=== PATIENT | female | born 1990 | race Caucasian/White ===

== ENCOUNTER 2018-09-06 16:46 | Emergency (ER) | payer SELFPAY ==
[2018-09-06 16:47] VITALS: BP 123/81; PULSE 74; RESP 16; TEMP 36.1; O2SAT 100; BMI 24.3
--- NOTE | 2018-09-06 17:19 | CT_ITS ---
STUDY: CT BRAIN WITH AND WITHOUT CONTRAST REASON FOR EXAM: Female, 28 years old. Venous headache RADIATION DOSAGE (If Supplied By Facility): CTDIvol = ( 44.99 ) mGy, DLP = ( 1502.23 ) mGycm TECHNIQUE: Transaxial CT imaging of the brain was performed pre and post contrast administration. The examination was performed with intravenous administration of 50ML ml of Isovue 370 contrast material. Individualized dose optimization techniques were used for this CT. COMPARISON: None. FINDINGS: Normal soft tissue structures. Normal calvarium. Normal size ventricles and extra-axial spaces for the patient's age. Normal white matter tracts of the cerebral hemispheres. Normal basal ganglia and thalami. Normal brainstem. Normal cerebellum. There is no intracranial hemorrhage. There are no findings of an acute ischemic infarction. Normal visualized paranasal sinuses. CT/Brain/Head W/WO Contrast IMPRESSION: Normal unenhanced and enhanced CT scan of the brain. Electronically Signed: Tresa Lawson MD at 19:27 EST Tel , Service support ,
--- NOTE | 2018-09-06 17:20 | ED.VISSUMM ---
- ER Visit Summary Date of Service: 09/06/18 Chief Complaint: Vertigo History of Present Illness: The patient is a 28 F who presents with worsening vertigo, now with a severe headache. Patient has been having episodes of banding without any one provocation. Sometimes it happens when she is still, if she goes from sitting to standing, if she is standing still,. There is not one particular movement or activity that provokes it. She now is having a severe headache diffusely since yesterday. She has had any ringing in her right ear. She had vertigo 2 years ago that was not this intense that resolved on its own. Patient is currently taking meclizine without any relief other than it making her very sleepy. She is having double vision and blurry vision intermittently. Patient denies chest pain, URI symptoms, shortness of breath, cough, neck or back pain, weakness or numbness in the arms or legs. She has no other medical history. No alcohol or drug use. Physical Examination: Vital signs: afebrile, hemodynamically stable, no hypoxia on room air General: well nourished, well developed, in no distress Skin: warm, dry, no rash, no pallor HEENT: normocephalic and atraumatic; PERRL, EOMI, no nystagmus noted, moist mucous membranes, neck is supple, nontender, no meningismus Cardiovascular: regular rate and rhythm without murmurs, no peripheral edema, 2+ pulses all distal extremities Respiratory: No increased work of breathing, lungs are clear to auscultation bilaterally, no rales, rhonchi or wheezing Abdominal: Abdomen is soft, nontender with normoactive bowel sounds, no guarding or rebound, no masses MSK: Moves all extremities, no deformities, normal strength Neuro: Awake and alert, oriented ?4. No facial droop, sensation and motor function intact and symmetric, negative provocation with the [place]-Hallpike maneuver Test Results: Abnormal Lab Results 09/06/18 09/06/18 09/06/18 17:30 17:30 17:30 WBC 7.0 RBC 4.72 Hgb 14.5 Hct 44.5 MCV 94.3 MCH 30.7 MCHC 32.6 RDW 13.6 RDW Differential 45.5 H Plt Count 211 MPV 11.1 Immature Gran % (Auto) 0.100 Neut % (Auto) 65.0 Lymph % (Auto) 26.5 [place] % (Auto) 6.4 Eos % (Auto) 1.4 Baso % (Auto) 0.6 Absolute Neuts (auto) 4.6 Absolute Lymphs (auto) 1.86 Total Counted Not Reportable Sodium 142 Potassium 3.9 Chloride 107 Carbon Dioxide 26.0 Anion Gap 9 BUN 14 Creatinine 0.99 Estim Creat Clear Calc 69.36 Est GFR (MDRD) Af Amer 85 Est GFR (MDRD) Non-Af 70 BUN/Creatinine Ratio 14.1 Glucose 91 Calcium 9.1 Serum , Qual NEGATIVE Clinical Impression(s) from Imaging Studies Brain CT 09/06/18 17:19 IMPRESSION: Normal unenhanced and enhanced CT scan of the brain. Electronically Signed: Tresa Lawson MD at 19:27 EST Tel , Service support , Medications Given Discontinued Medications Diphenhydramine HCl (Benadryl) 25 mg IV X1 ONE Stop: 09/06/18 17:20 Last Admin: 09/06/18 17:52 Dose: 25 mg Sodium Chloride () 1,000 mls @ 999 mls/hr IV .Q1H1M ONE Stop: 09/06/18 18:19 Last Admin: 09/06/18 17:53 Dose: 999 mls/hr Ketorolac Tromethamine (Toradol) 15 mg IV X1 ONE Stop: 09/06/18 17:20 Last Admin: 09/06/18 17:52 Dose: 15 mg Promethazine HCl (Phenergan) 12.5 mg IV X1 ONE Stop: 09/06/18 17:20 Last Admin: 09/06/18 17:52 Dose: 12.5 mg Emergency Department Course and Treatment: Patient presents with 2 weeks of vertigo, now with a severe headache and intermittent vision changes. Her symptoms do seem more consistent with peripheral vertigo, as there is some provocation with positional changes, however it is not consistent, and patient has episodes even if she is not moving at all. He does have the right tinnitus, and the prior episode 2 years ago, which makes M?ni?re's disease on the differential. She has never had head imaging for her vertigo, and now with vision changes, the severe headache, and family concern for a brain tumor, CT head with contrast performed to evaluate for any mass lesions. Patient was given IV fluids, Phenergan, Benadryl and Toradol for headache treatment and vertigo symptoms. Labs were unremarkable. CT head with contrast showed no signs of any tumors, lesions or abscesses. Patient was reevaluated and had resolution of her headache with the medications. Her vertigo had improved. She was given a prescription for Phenergan for home to try instead of meclizine and also a prescription for Valium for any episodes of severe vertigo. Patient was discharged home and is to follow-up with her doctor for reevaluation if symptoms do not improve. Patient is concerned about the costs of the medications, and if the generics are prohibitively expensive, I advised her to call me back for a similar alternative prescription that would be more affordable if her prescriptions are prohibitively expensive. Treatment Plan: [] Disposition: [] Impression: peripheral vertigo, suspect Meniere's This note was generated with [employer] dictation software. It may contain incorrect words, spelling, and punctuation that were not noted in review of the chart prior to signing ED Disposition - Plan for ED Patient: Disposition: Home or Assisted Living Chief Complaint: Dizziness Instructions: ED Vertigo Unspecified Prescriptions: RX: proMETHazine tablet [Phenergan tablet] 25 mg PO Q6H PRN PRN #20 tab PRN Reason: Nausea and vertigo Diazepam [Valium] 2 mg PO TID PRN PRN #20 tab PRN Reason: Vertigo Referrals: NOT,DEFINED [NON-STAFF] - Doctor,Your [STAFF PHYSICIAN] - 3-5 Days if not improving Additional Instructions: Please follow-up with your doctor if you are not having improvement in your vertigo within 3-5 days. You may need referral to an ear nose throat doctor or an time study statistician for further evaluation of your inner ears if your symptoms continue. May try the promethazine in place of the meclizine for your symptoms. You may use the Valium for severe symptoms or at nighttime. Do not drink, drive, do any dangerous activities, or mix the Valium with any other sedating medications, as it could interact with other medicines and cause your breathing to slow down. If you have any worsening of your condition or any new concerning symptoms, please return immediately to the emergency department for another evaluation.
--- NOTE | 2018-09-06 17:23 | ED.DCSUM_ITS ---
- ER Visit Summary Date of Service: 09/06/18 Chief Complaint: Vertigo History of Present Illness: The patient is a 28 F who presents with worsening vertigo, now with a severe headache. Patient has been having episodes of banding without any one provocation. Sometimes it happens when she is still, if she goes from sitting to standing, if she is standing still,. There is not one particular movement or activity that provokes it. She now is having a severe headache diffusely since yesterday. She has had any ringing in her right ear. She had vertigo 2 years ago that was not this intense that resolved on its own. Patient is currently taking meclizine without any relief other than it making her very sleepy. She is having double vision and blurry vision intermittently. Patient denies chest pain, URI symptoms, shortness of breath, cough, neck or back pain, weakness or numbness in the arms or legs. She has no other medical history. No alcohol or drug use. Physical Examination: Vital signs: afebrile, hemodynamically stable, no hypoxia on room air General: well nourished, well developed, in no distress Skin: warm, dry, no rash, no pallor HEENT: normocephalic and atraumatic; PERRL, EOMI, no nystagmus noted, moist mucous membranes, neck is supple, nontender, no meningismus Cardiovascular: regular rate and rhythm without murmurs, no peripheral edema, 2+ pulses all distal extremities Respiratory: No increased work of breathing, lungs are clear to auscultation bilaterally, no rales, rhonchi or wheezing Abdominal: Abdomen is soft, nontender with normoactive bowel sounds, no guarding or rebound, no masses MSK: Moves all extremities, no deformities, normal strength Neuro: Awake and alert, oriented ?4. No facial droop, sensation and motor function intact and symmetric, negative provocation with the [place]-Hallpike maneuver Test Results: Abnormal Lab Results 09/06/18 09/06/18 09/06/18 17:30 17:30 17:30 WBC 7.0 RBC 4.72 Hgb 14.5 Hct 44.5 MCV 94.3 MCH 30.7 MCHC 32.6 RDW 13.6 RDW Differential 45.5 H Plt Count 211 MPV 11.1 Immature Gran % (Auto) 0.100 Neut % (Auto) 65.0 Lymph % (Auto) 26.5 [place] % (Auto) 6.4 Eos % (Auto) 1.4 Baso % (Auto) 0.6 Absolute Neuts (auto) 4.6 Absolute Lymphs (auto) 1.86 Total Counted Not Reportable Sodium 142 Potassium 3.9 Chloride 107 Carbon Dioxide 26.0 Anion Gap 9 BUN 14 Creatinine 0.99 Estim Creat Clear Calc 69.36 Est GFR (MDRD) Af Amer 85 Est GFR (MDRD) Non-Af 70 BUN/Creatinine Ratio 14.1 Glucose 91 Calcium 9.1 Serum , Qual NEGATIVE Clinical Impression(s) from Imaging Studies Brain CT 09/06/18 17:19 IMPRESSION: Normal unenhanced and enhanced CT scan of the brain. Electronically Signed: Tresa Lawson MD at 19:27 EST Tel , Service support , Medications Given Discontinued Medications Diphenhydramine HCl (Benadryl) 25 mg IV X1 ONE Stop: 09/06/18 17:20 Last Admin: 09/06/18 17:52 Dose: 25 mg Sodium Chloride () 1,000 mls @ 999 mls/hr IV .Q1H1M ONE Stop: 09/06/18 18:19 Last Admin: 09/06/18 17:53 Dose: 999 mls/hr Ketorolac Tromethamine (Toradol) 15 mg IV X1 ONE Stop: 09/06/18 17:20 Last Admin: 09/06/18 17:52 Dose: 15 mg Promethazine HCl (Phenergan) 12.5 mg IV X1 ONE Stop: 09/06/18 17:20 Last Admin: 09/06/18 17:52 Dose: 12.5 mg Emergency Department Course and Treatment: Patient presents with 2 weeks of vertigo, now with a severe headache and intermittent vision changes. Her symptoms do seem more consistent with peripheral vertigo, as there is some provocation with positional changes, however it is not consistent, and patient has episodes even if she is not moving at all. He does have the right tinnitus, and the prior episode 2 years ago, which makes M?ni?re's disease on the differential. She has never had head imaging for her vertigo, and now with vision changes, the severe headache, and family concern for a brain tumor, CT head with contrast performed to evaluate for any mass lesions. Patient was given IV fluids, Phenergan, Benadryl and Toradol for headache treatment and vertigo symptoms. Labs were unremarkable. CT head with contrast showed no signs of any tumors, lesions or abscesses. Patient was reevaluated and had resolution of her headache with the medications. Her vertigo had improved. She was given a prescription for Phenergan for home to try instead of meclizine and also a prescription for Valium for any episodes of severe vertigo. Patient was discharged home and is to follow-up with her doctor for reevaluation if symptoms do not improve. Patient is concerned about the costs of the medications, and if the generics are prohibitively expensive, I advised her to call me back for a similar alternative prescription that would be more affordable if her prescriptions are prohibitively expensive. Treatment Plan: [] Disposition: [] Impression: peripheral vertigo, suspect Meniere's This note was generated with [employer] dictation software. It may contain incorrect words, spelling, and punctuation that were not noted in review of the chart prior to signing ED Disposition - Plan for ED Patient: Disposition: Home or Assisted Living Chief Complaint: Dizziness Instructions: ED Vertigo Unspecified Prescriptions: RX: proMETHazine tablet [Phenergan tablet] 25 mg PO Q6H PRN PRN #20 tab PRN Reason: Nausea and vertigo Diazepam [Valium] 2 mg PO TID PRN PRN #20 tab PRN Reason: Vertigo Referrals: NOT,DEFINED [NON-STAFF] - Doctor,Your [STAFF PHYSICIAN] - 3-5 Days if not improving Additional Instructions: Please follow-up with your doctor if you are not having improvement in your vertigo within 3-5 days. You may need referral to an ear nose throat doctor or an hydroelectric powerplant supervisor for further evaluation of your inner ears if your symptoms continue. May try the promethazine in place of the meclizine for your symptoms. You may use the Valium for severe symptoms or at nighttime. Do not drink, drive, do any dangerous activities, or mix the Valium with any other sedating medications, as it could interact with other medicines and cause your breathing to slow down. If you have any worsening of your condition or any new concerning symptoms, please return immediately to the emergency department for another evaluation.
[2018-09-06 17:50] LABS: Hematocrit 44.5 % (37-47); Hemoglobin 14.5 g/dl (12.0-15.0); Mean Corp Hgb Conc 32.6 g/gl (32-36); Mean Corpuscular Hgb 30.7 pg (27.0-32.0); Mean Corpuscular Volume 94.3 fL (81-99); RBC Distribution Width CV 13.6 % (11.6-14.6); Red Blood Count 4.72 M/mm3 (4.2-5.4)
[2018-09-06 17:51] LABS: Absolute Lymphocyte Count 1.86 X10^3/ul (0.83-4.51); Absolute Neutrophil Count 4.6 X10^3/uL (2.0-7.7); Basophil# 0.04 X10^3/uL; Basophil% 0.6 % (0-1); Eosinophils% 1.4 % (0-5); Lymphocyte # 1.86 X10^3/ul (4.0); Lymphocyte % 26.5 % (19-41); Mean Platelet Vol. 11.1 fl (6.2-12.0); Monocyte# 0.45 X10^3/uL; Monocyte% 6.4 % (0-10); POSITIVE COUNT NO; POSITIVE DIFFERENTIAL NO; POSITIVE MORPHOLOGY NO; Platelet Count 211 K/mm3 (150-450); RBC Distribution Width SD 45.5 fl (35.1-43.9)
[2018-09-06] MEDS: proMETHazine 25 MG/ML Syringe 12.5 MG IV (17:52)
[2018-09-06] MEDS: Ketorolac 30 MG/ML Syringe 15 MG IV (17:52)
[2018-09-06] MEDS: DiphenhydrAMINE 50 MG/ML Syringe 25 MG IV (17:52)
[2018-09-06] MEDS: 0.9% Normal Saline 1,000 ML 999 ML IV (17:53)
[2018-09-06 18:04] LABS: Anion Gap 9 (5-15); BUN 14 mg/dL (7-18); BUN/Creat Ratio 14.1 RATIO (10-20); Calcium,Total 9.1 mg/dL (8.5-10.1); Chloride 107 mmol/L (98-107); Creatinine, Serum 0.99 mg/dL (0.55-1.02); EST Glomerular Filtration Rate 70 mL/min (>60); Est Glom Filt Rate - Afr Amer 85 mL/min (>60); Estimated Creatinine Clearance 69.36 ml/min; Glucose 91 mg/dL (74-106); Potassium 3.9 mmol/L (3.5-5.1); Sodium Level 142 mmol/L (136-145)
[2018-09-06 18:38] LABS: Pregnancy, Serum, hCG Quali. NEGATIVE Negative (0-9 Nonpreg)
--- NOTE | 2018-09-06 20:39 | ED.DEP ---
ED Disposition - Plan for ED Patient: Disposition: Home or Assisted Living Chief Complaint: Dizziness Instructions: ED Vertigo Unspecified Prescriptions: proMETHazine tablet [Phenergan tablet] 25 mg PO Q6H PRN PRN #20 tab PRN Reason: Nausea and vertigo Diazepam [Valium] 2 mg PO TID PRN PRN #20 tab PRN Reason: Vertigo Referrals: NOT,DEFINED [NON-STAFF] - Doctor,Your [STAFF PHYSICIAN] - 3-5 Days if not improving Additional Instructions: Please follow-up with your doctor if you are not having improvement in your vertigo within 3-5 days. You may need referral to an ear nose throat doctor or an farm supervisor for further evaluation of your inner ears if your symptoms continue. May try the promethazine in place of the meclizine for your symptoms. You may use the Valium for severe symptoms or at nighttime. Do not drink, drive, do any dangerous activities, or mix the Valium with any other sedating medications, as it could interact with other medicines and cause your breathing to slow down. If you have any worsening of your condition or any new concerning symptoms, please return immediately to the emergency department for another evaluation.
[2018-09-06 20:56] VITALS: RESP 16
--- OUTSIDE RECORDS SUMMARY | 2018-10-24 00:03 | XMS RPT_ITS ---
:1990 Author Organization [facility] Care Team Providers Name Role Phone Jose Wahl Admitting Unavailable Newbill, Jose Bernal Attending Unavailable No Doctor Assigned, Nodr Primary Care Unavailable NewbillJose Admitting Unavailable Newbill, Jose Bernal Attending Unavailable No Doctor Assigned, Nodr Primary Care Unavailable Isaura Shay Attending Unavailable Primay Care Physicia, No Primary Care Unavailable PROBLEMS PROBLEMS DATE TYPE CONDITION / CODE ATTENDING STATUS SOURCE 09/06/2018 Unknown R42 - Dizziness Isaura Shay Active Kayla and giddiness / Community R42(ICD-10) Hospital Repository PROCEDURES PROCEDURES No Procedure Records FoundRESULTS RESULTS EMERGENCY DEPARTMENT Observed: 09/07/2018 Status: F Source: MALAKOFF SUMMARY 12:29 AM [facility] REPOSITORY [facility] Medical Records Department [address] [place] [address] Emergency Department Summary 09/06/18 1720 MR#: [id number] Acct: [id number] Name: YANELIS JANSEN Rep #: [id number] : 1990 28 From: Isaura Shay MD PCP: Care Physician, No Primary Status: DEP ER - ER Visit Summary Date of Service: 09/06/18 Chief Complaint: Vertigo History of Present Illness: The patient is a 28 F who presents with worsening vertigo, now with a severe headache. Patient has been having episodes of banding without any one provocation. Sometimes it happens when she is still, if she goes from sitting to standing, if she is standing still,. There is not one particular movement or activity that provokes it. She now is having a severe headache diffusely since yesterday. She has had any ringing in her right ear. She had vertigo 2 years ago that was not this intense that resolved on its own. Patient is currently taking meclizine without any relief other than it making her very sleepy. She is having double vision and blurry vision intermittently. Patient denies chest pain, URI symptoms, shortness of breath, cough, neck or back pain, weakness or numbness in the arms or legs. She has no other medical history. No alcohol or drug use. Physical Examination: Vital signs: afebrile, hemodynamically stable, no hypoxia on room air General: well nourished, well developed, in no distress Skin: warm, dry, no rash, no pallor HEENT: normocephalic and atraumatic; PERRL, EOMI, no nystagmus noted, moist mucous membranes, neck is supple, nontender, no meningismus Cardiovascular: regular rate and rhythm without murmurs, no peripheral edema, 2+ pulses all distal extremities Respiratory: No increased work of breathing, lungs are clear to auscultation bilaterally, no rales, rhonchi or wheezing Abdominal: Abdomen is soft, nontender with normoactive bowel sounds, no guarding or rebound, no masses MSK: Moves all extremities, no deformities, normal strength Neuro: Awake and alert, oriented 4. No facial droop, sensation and motor function intact and symmetric, negative provocation with the Jessica-Hallpike maneuver Test Results: Abnormal Lab Results WBC 7.0 RBC 4.72 Hgb 14.5 Hct 44.5 MCV 94.3 MCH 30.7 MCHC 32.6 RDW 13.6 RDW Differential 45.5 H Plt Count 211 Clinical Impression(s) from Imaging Studies Brain CT 09/06/18 17:19 IMPRESSION: Normal unenhanced and enhanced CT scan of the brain. Electronically Signed: Tresa Lawson MD at 19:27 EST Tel , Service support , Medications Given Discontinued Medications Diphenhydramine HCl (Benadryl) 25 mg IV X1 ONE Stop: 09/06/18 17:20 Last Admin: 09/06/18 17:52 Dose: 25 mg Sodium Chloride () 1,000 mls @ 999 mls/hr IV .Q1H1M ONE Stop: 09/06/18 18:19 Last Admin: 09/06/18 17:53 Dose: 999 mls/hr Ketorolac Tromethamine (Toradol) 15 mg IV X1 ONE Stop: 09/06/18 17:20 Last Admin: 09/06/18 17:52 Dose: 15 mg Promethazine HCl (Phenergan) 12.5 mg IV X1 ONE Stop: 09/06/18 17:20 Last Admin: 09/06/18 17:52 Dose: 12.5 mg Emergency Department Course and Treatment: Patient presents with 2 weeks of vertigo, now with a severe headache and intermittent vision changes. Her symptoms do seem more consistent with peripheral vertigo, as there is some provocation with positional changes, however it is not consistent, and patient has episodes even if she is not moving at all. He does have the right tinnitus, and the prior episode 2 years ago, which makes M ni re's disease on the differential. She has never had head imaging for her vertigo, and now with vision changes, the severe headache, and family concern for a brain tumor, CT head with contrast performed to evaluate for any mass lesions. Patient was given IV fluids, Phenergan, Benadryl and Toradol for headache treatment and vertigo symptoms. Labs were unremarkable. CT head with contrast showed no signs of any tumors, lesions or abscesses. Patient was reevaluated and had resolution of her headache with the medications. Her vertigo had improved. She was given a prescription for Phenergan for home to try instead of meclizine and also a prescription for Valium for any episodes of severe vertigo. Patient was discharged home and is to follow-up with her doctor for reevaluation if symptoms do not improve. Patient is concerned about the costs of the medications, and if the generics are prohibitively expensive, I advised her to call me back for a similar alternative prescription that would be more affordable if her prescriptions are prohibitively expensive. Treatment Plan: [] Disposition: [] Impression: peripheral vertigo, suspect Meniere's This note was generated with Plant[employer]ense[employer] software. It may contain incorrect words, spelling, and punctuation that were not noted in review of the chart prior to signing ED Disposition - Plan for ED Patient: Disposition: Home or Assisted Living Chief Complaint: Dizziness Instructions: ED Vertigo Unspecified Prescriptions: RX: proMETHazine tablet [Phenergan tablet] 25 mg PO Q6H PRN PRN #20 tab PRN Reason: Nausea and vertigo Diazepam [Valium] 2 mg PO TID PRN PRN #20 tab PRN Reason: Vertigo Referrals: NOT,DEFINED [NON-STAFF] - Doctor,Your [STAFF PHYSICIAN] - 3-5 Days if not improving Additional Instructions: Please follow-up with your doctor if you are not having improvement in your vertigo within 3-5 days. You may need referral to an ear nose throat doctor or an coach driver for further evaluation of your inner ears if your symptoms continue. May try the promethazine in place of the meclizine for your symptoms. You may use the Valium for severe symptoms or at nighttime. Do not drink, drive, do any dangerous activities, or mix the Valium with any other sedating medications, as it could interact with other medicines and cause your breathing to slow down. If you have any worsening of your condition or any new concerning symptoms, please return immediately to the emergency department for another evaluation. What to do if you have Problems For any increased pain, shortness of breath, bleeding, nausea or vomiting, chest pain, or any unexpected problems, contact your Primary Care Provider. Call [facility] ([phone]) or report to the closest Emergency Room. Call 911 if necessary. 09/07/18 0029 <Electronically signed by Isaura Shay MD> Date Isaura Minaigner Signature (If Indicated): Date CC: No Primary Care Physician DISCHARGE INSTRUCTION Observed: 09/06/2018 Status: F Source: KAYLA 11:31 PM [facility] REPOSITORY [facility] Medical Records Department [address] [place] [address] Discharge Instruction 09/06/182038 MR#: [id number] Acct: [id number] Name: YANELIS JANSEN Rep #: [id number] : 1990 28 From: Isaura Shay MD PCP: Care Physician, No Primary Status: DEP ER ED Disposition - Plan for ED Patient: Disposition: Home or Assisted Living Chief Complaint: Dizziness Instructions: ED Vertigo Unspecified Prescriptions: proMETHazine tablet [Phenergan tablet] 25 mg PO Q6H PRN PRN #20 tab PRN Reason: Nausea and vertigo Diazepam [Valium] 2 mg PO TID PRN PRN #20 tab PRN Reason: Vertigo Referrals: NOT,DEFINED [NON-STAFF] - Doctor,Your [STAFF PHYSICIAN] - 3-5 Days if not improving Additional Instructions: Please follow-up with your doctor if you are not having improvement in your vertigo within 3-5 days. You may need referral to an ear nose throat doctor or an coach driver for further evaluation of your inner ears if your symptoms continue. May try the promethazine in place of the meclizine for your symptoms. You may use the Valium for severe symptoms or at nighttime. Do not drink, drive, do any dangerous activities, or mix the Valium with any other sedating medications, as it could interact with other medicines and cause your breathing to slow down. If you have any worsening of your condition or any new concerning symptoms, please return immediately to the emergency department for another evaluation. What to do if you have Problems For any increased pain, shortness of breath, bleeding, nausea or vomiting, chest pain, or any unexpected problems, contact your Primary Care Provider. Call [facility] ([phone]) or report to the closest Emergency Room. Call 911 if necessary. 09/06/18 2371 <Electronically signed by Isaura Shay MD> Date Isaura Shay MD Cosigner Signature (If Indicated): Date CC: No Primary Care Physician CBC W/DIFF, AUTOMATED Collected: 09/06/2018 Status: F Source: KAYLA 5:30 PM [facility] REPOSITORY TYPE CODE TESTS RESULT OUT OF RANGE REFERENCE UNITS LAB L100.1000 4.4-11.0 K/mm3 Normal WBC 7.0 LAB L100.1200 4.2-5.4 M/mm3 Normal RBC 4.72 LAB L100.1300 12.0-15.0 g/dl Normal HGB 14.5 LAB L100.1400 37-47 % Normal HCT 44.5 LAB L100.1500 81-99 fL Normal MCV 94.3 LAB L100.1600 27.0-32.0 pg Normal MCH 30.7 LAB L100.1700 32-36 g/gl Normal MCHC 32.6 LAB L100.1810 11.6-14.6 % Normal RDW CV 13.6 LAB L100.1820 35.1-43.9 fl High RDW SD 45.5 LAB L100.1900 150-450 K/mm3 Normal PLT 211 LAB L100.2000 6.2-12.0 fl Normal MPV 11.1 LAB L100.2100 47-70 % Normal NEUT% 65.0 LAB L100.2200 19-41 % Normal LY% 26.5 LAB L100.2300 0-10 % Normal MONO% 6.4 LAB L100.2400 0-5 % Normal EO% 1.4 LAB L100.2500 0-1 % Normal BASO% 0.6 LAB L100.2550 0.0-0.9 % Normal IM GRAN % 0.100 Result Comment: IG% - Immature Granulocytes (promyelocytes, myelocytes and metamyelocytes) > 1% indicates that a LEFT SHIFT is Present. LAB L100.2620 2.0-7.7 X10 3/uL Normal Absolute Neut 4.6 LAB L100.2720 0.83-4.51 X10 3/ul Normal Absolute Lymph 1.86 Performed By: #### L100.0100 #### [facility] [place] [address], [address] BASIC METABOLIC Collected: 09/06/2018 Status: F Source: KAYLA PROFILE (BMP) 5:30 PM [facility] REPOSITORY TYPE CODE TESTS RESULT OUT OF RANGE REFERENCE UNITS LAB L501.0100 74-106 mg/dL Normal GLU 91 Result Comment: Please note revised GLUCOSE reference range effective 2017. LAB L501.1000 7-18 mg/dL Normal BUN 14 LAB L501.1100 0.55-1.02 mg/dL Normal CREAT,SERUM 0.99 Result Comment: The validity of the calculated GFR AND GFRAA in patients over 70 years has not been determined. Clinical correlation is essential. LAB L501.1110 >60 mL/min Normal EST GFR 70 Result Comment: Non- GFR Calc LAB L501.1115 >60 mL/min Normal EST GFR - AA 85 Result Comment: GFR Calc LAB L501.1255 ml/min Normal Estimated CRCL 69.36 LAB L501.1300 10-20 RATIO Normal BUN/CRE 14.1 LAB L501.2200 8.5-10 mg/dL Normal .1 CA 9.1 LAB L501.5300 136-14 mmol/L Normal 5 NA 142 LAB L501.5600 3.5-5. mmol/L Normal 1 K 3.9 LAB L501.5900 98-107 mmol/L Normal CL 107 LAB L501.6100 21.0-3 mmol/L Normal 2.0 CO2 26.0 LAB L501.6200 5-15 Normal GAP 9 Performed By: #### L500.2500 #### [facility] [address] [place], [place], [address] ,SERUM,HCG QUALI. Collected: Status: F Source: KAYLA 09/06/2018 5:30 PM [facility] REPOSITORY TYPE CODE TESTS RESULT OUT OF REFERENCE UNITS RANGE LAB L700.6700 =>Qualitative mIU/mL Normal HCG Qual < 1 triggr LAB L700.7000 0-9 Nonpreg Negative Normal HCGSQUAL NEGATIVE Performed By: #### L700.6800 #### [facility] [address] [place], [address] BRAIN/HEAD W/WO Observed: 09/06/2018 Status: F Source: KAYLA CONTRAST 5:21 PM [facility] REPOSITORY [facility] Imaging Services [address] [place] [address] Brain/Head W/WO Contrast MR#: [id number] Acct: [id number] Name: YANELIS JANSEN Rep #: [id number] : 1990 F 28 From: Tresa Lawson MD PCP: Care Physician, No Primary Status: REG ER Study: Brain/Head W/WO Contrast Date of Exam: 09/06/18 Exam# [id number] Ordering Dr: Isaura Shay MD STUDY: CT BRAIN WITH AND WITHOUT CONTRAST REASON FOR EXAM: Female, 28 years old. Venous headache RADIATION DOSAGE (If Supplied By Facility): CTDIvol = ( 44.99 ) mGy, DLP = ( 1502.23 ) mGycm TECHNIQUE: Transaxial CT imaging of the brain was performed pre and post contrast administration. The examination was performed with intravenous administration of 50ML ml of Isovue 370 contrast material. Individualized dose optimization techniques were used for this CT. COMPARISON: None. FINDINGS: Normal soft tissue structures. Normal calvarium. Normal size ventricles and extra-axial spaces for the patient's age. Normal white matter tracts of the cerebral hemispheres. Normal basal ganglia and thalami. Normal brainstem. Normal cerebellum. There is no intracranial hemorrhage. There are no findings of an acute ischemic infarction. Normal visualized paranasal sinuses. CT/Brain/Head W/WO Contrast IMPRESSION: Normal unenhanced and enhanced CT scan of the brain. Electronically Signed: Tresa Lawson MD at 19:27 EST Tel , Service support , CC: No Primary Care Physician; Isaura Shay MD Herbarium Curator: Signed ALLERGIES ALLERGIES DATE TYPE / NAME / CODE REACTION SEVERITY SOURCE CODE 09/06/2018 Drug amoxicillin/F0060 Anaphylaxis Unknown Kayla Allergy/41 05087(RXNORM) [facility] 7093755([facility] CT) Repository Drug/71902 amoxicillin [id number] Severe Yazdanism 1003([facility] CT) System Repository ENCOUNTERS ENCOUNTERS ADMIT/DISCHARGE ACCOUNT NUMBER ADMITTING ENCOUNTER LOCATION SOURCE CLASS 09/06/2018/09/06/20 [id number] Emergency [place] Kayla 18 [facility] ding:ED Repository 07/01/2018/07/01/20 [id number] [facility] Gabe g:QCareRoom: [facility] Room 3 [facility] System Repository 01/05/2018/01/06/20 [id number] [facility] Jose Amb[facility] 18 Gabe g:QCareRoom: [facility] Room 2 Health System Repository PAYERS PAYERS ENCOUNTER GUARANTOR PAYER SUBSCRIBER SOURCE 09/06/2018 YANELIS Gauthier Primary NOT GIVENUNK [place] [id number] Insurance:SELF PAY [place], [place] Number: Effective Repository [id number]: [phone]) Date:2018-09-06 [phone] () 07/01/2018 YANELIS L Primary YANELIS Suarez HOUSEHOLDERDOB: Insurance:[birth year] Self HOUSEHOLDERDOB: [facility] E PayPolicy Number: [id number] System MAIN Effective E MAIN [facility]01 [facility] [place] [id number] [address]Rvo: Name:CD:[id number] [phone]: (HP) (HP) (WP) 01/05/2018 YANELIS L Primary YANELIS Suarez HOUSEHOLDERDOB: Insurance:1500 Self HOUSEHOLDERDOB: [facility] E PayPolicy Number: [id number] System MAIN [place] Effective E MAIN [place] Repository [place] Date:2018-01-05 - [place] [address]Zhb: Name:CD:[id number] [phone]: () (HP) (WP)
== END 2018-09-06 20:57 | disposition home or self-care (01) ==
PROVIDERS: Emergency Provider Emergency Medicine
DX: H81.399 Other peripheral vertigo, unspecified ear (principal)
CPT/HCPCS: 70470; 80048; 84703; 85025; 96361; 96374; 96375; 99283; Q9967